=== PATIENT | male | born 1995 | race Caucasian/White ===

== ENCOUNTER 2017-11-27 08:08 | Emergency (ER) | payer OTHER ==
[~2017-11-27] VITALS: Ht 185.4 cm; Wt 82.6 kg
[2017-11-27 08:10] VITALS: BP 143/90
--- NOTE | 2017-11-27 08:14 | NUR ---
PT AMBULATES TO BED 3
--- NOTE | 2017-11-27 08:20 | NUR ---
21/M bib CLOSED FRIEND with c/o NAUSEA, LEFT ABDOMEN DYSCOMFORT RADIATING TO LEFT GROIN & PENIS x 1 month. Patient also reportED diarrhea X 2 EPISODES X YESTERDAY. Patient denies any dysuria, fevers, or penile discharge. AAOX4 WITH EVEN AND STEADY GAIT; LUNGS CLEAR BL; HR EVEN AND REGULAR; PT DENIES ANY FEVER, CP, SOB, OR COUGH AT THIS TIME; PATIENT STATES PAIN OF 6/10 AT THIS TIME; VSS; PATIENT POSITIONED FOR COMFORT; HOB ELEVATED; BEDRAILS UP X2; BED DOWN. ER MD MADE AWARE OF PT STATUS.
--- NOTE | 2017-11-27 08:25 | NUR ---
Patient being evaluated by physician at bedside.
[2017-11-27 08:58] LABS: APPEARANCE,URINE CLEAR (CLEAR); BILIRUBIN,URINE NEGATIVE (NEGATIVE); BLOOD, URINE NEGATIVE (NEGATIVE); COLOR,URINE YELLOW (YELLOW); LEUKOCYTE ESTERASE ,URINE NEGATIVE (NEGATIVE); NITRITE, URINE NEGATIVE (NEGATIVE); UGLUCOSE NEGATIVE (NEGATIVE)
[2017-11-27] MEDS ORDERED: cefTRIAXone 250 MG in LIDOCAINE MPF 1% - 5 mL VIAL 0.9 ML IM ONE (09:45)
[2017-11-27 10:22] VITALS: BP 121/75
[2017-11-29 06:20] LABS: CHLAMYDIA TRACHOMATIS AMP DNA Negative (Negative)
== END 2017-11-27 10:22 | disposition home or self-care (01) ==
LOC: MED 08:08
DX: J06.9 Acute upper respiratory infection, unspecified (principal); R35.0 Frequency of micturition
CPT/HCPCS: 36415; 81003; 87086; 96372; 99284; J0696; J2001; 87491